=== PATIENT | male | born 1945 ===

== ENCOUNTER 2025-07-08 12:18 | Outpatient (CLI) | payer MEDICARE, OTHER ==
[2025-07-08] MEDS ORDERED: iohexol 300mg/ml 100ml inj. ONE (12:32)
--- NOTE | 2025-07-08 14:03 | RADIOLOGY REPORT ---
EXAM: CT CT T L SPINE HISTORY: SPINAL STENOSIS COMPARISON: None TECHNIQUE: Helical CT images of the thoracic spine and lumbar spine were performed with and without I V contrast utilizing 100 mL Omnipaque 300 IV contrast. Sagittal and coronal reformatted images were o btained. This CT exam was performed using one or more of the following dose reduction techniques: Aut omated exposure control, adjustment of the mA and/or kv according to patient size, or the use of iter ative reconstruction techniques. Radiation Dose: CT Dose: CTDI volume is 54.68 mGy. Dose-length product is 3288.36 mGy*cm FINDINGS: CT thoracic spine: No fracture or listhesis of the thoracic spine. There is mild thoracic degenerati ve disc disease. No high-grade spinal canal stenosis at any level in the thoracic spine. There are co ronary artery calcifications and extensive atherosclerotic calcifications of the thoracic aorta and b rachiocephalic arteries. There is ectasia of the central pulmonary arteries. There is moderate to se el emphysema of the lungs, not fully imaged here. There is small right pleural effusion. There ma y be a trace left pleural effusion. CT lumbar spine: No fractures or listhesis of the lumbar spine. There is [id number] lumbar deg enerative disc disease and facet arthropathy. No high-grade spinal canal stenosis or neural foramina l stenosis at any level in the lumbar spine. There is at least 1 gallstone in the dependent portion o f the gallbladder. There are postoperative changes with multiple surgical clips in the retroperitone um. 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 There are bilateral renal simp le cysts. There are thick atherosclerotic calcifications of the abdominal aorta and major branches. T here is fecal retention in the colon, best appreciated in the fabric sourcer film. Cintron catheter is present i n the urinary bladder, not fully imaged here. IMPRESSION: 1. No fractures are identified about the thoracic spine or lumbar spine. 2. Degenerative disc disease without high-grade spinal canal stenosis at any level in the thoracic sp ine or lumbar spine. 3. Coronary artery disease and extensive atherosclerotic vascular disease throughout the visualized a rterial structures. 4. Small right and trace left pleural effusions. 5. Fecal retention in the colon suggestive of constipation. 6. Cholelithiasis.
== END 2025-07-08 23:59 | disposition home or self-care (01) ==
LOC: RAD 12:18
PROVIDERS: ATTEND Family Medicine
DX: M47.816 Spondylosis without myelopathy or radiculopathy, lumbar region (principal); M51.35 Other intervertebral disc degeneration, thoracolumbar region; M48.00 Spinal stenosis, site unspecified; I25.10 Atherosclerotic heart disease of native coronary artery without angina pectoris; I70.0 Atherosclerosis of aorta; I77.89 Other specified disorders of arteries and arterioles; J43.9 Emphysema, unspecified; J90 Pleural effusion, not elsewhere classified; K80.20 Calculus of gallbladder without cholecystitis without obstruction; N26.1 Atrophy of kidney (terminal); N28.1 Cyst of kidney, acquired; K59.00 Constipation, unspecified; Z98.890 Other specified postprocedural states
CPT/HCPCS: 72130; 72133; Q9967